=== PATIENT | female | born 1980 | race Caucasian/White ===

== ENCOUNTER → 2020-05-19 | Outpatient (CLI) | payer OTHER | END | disposition home or self-care (01) | LOC: LABWHC1 12:28 | PROVIDERS: ATTEND Obstetrics & Gynecology | DX: N83.201 Unspecified ovarian cyst, right side (principal) | CPT/HCPCS: 36415 ==

== ENCOUNTER → 2020-06-04 | Outpatient (CLI) | payer OTHER ==
[2020-06-04 17:01] LABS: Basophils % (A) 1 %; Eosinophils # (A) 0.2 k/uL (0-0.7); Eosinophils % (A) 3 %; HCT 39.7 % (34.0-46.0); HGB 12.4 gm/dL (11.4-16.0); Lymphocytes # (A) 2.9 k/uL (1.0-4.8); Lymphocytes % (A) 34 %; MCH 26.6 pg (25.0-35.0); MCHC 31.2 g/dL (31.0-37.0); MCV 85.2 fL (80.0-100.0); Mean Platelet Volume 6.8; Monocytes # (A) 0.5 k/uL (0-1.0); Monocytes % (A) 6 %; Neutrophils # (A) 4.7 k/uL (1.3-7.7); Neutrophils % (A) 55 %; Platelet Count 393 k/uL (150-450); RBC 4.66 m/uL (3.80-5.40); RDW 14.2 % (11.5-15.5); WBC 8.6 k/uL (3.8-10.6)
[2020-06-04 17:12] LABS: African American GFR (CKD) >90 (>60 ml/min/1.73 sqM); Anion Gap 8 mmol/L; Blood Urea Nitrogen 11 mg/dL (7-17); Carbon Dioxide 26 mmol/L (22-30); Chloride 104 mmol/L (98-107); Glucose 97 mg/dL (74-99); Non-African American GFR(CKD) >90 (>60 ml/min/1.73 sqM); Sodium 138 mmol/L (137-145)
== END | disposition home or self-care (01) ==
LOC: LABWHC1 16:19
PROVIDERS: ATTEND Obstetrics & Gynecology
DX: Z01.818 Encounter for other preprocedural examination (principal); N83.299 Other ovarian cyst, unspecified side
CPT/HCPCS: 80051; 82565; 82947; 84520; 85025; 87086

== ENCOUNTER 2020-06-14 05:50 | Inpatient (IN) | payer OTHER ==
[2020-06-09 16:09] VITALS: BMI 28.3
[2020-06-14] MEDS ORDERED: MIDAZOLAM 2 MG/2 ML VIAL IV PRN (05:58)
[2020-06-14] MEDS ORDERED: ONDANSETRON 4 MG/2 ML VIAL IVP ONE (05:58)
[2020-06-14] MEDS ORDERED: DEXAMETHASONE SOD PHOSPHATE 4 MG/ML 1 ML VIAL IV ONE (05:58)
[2020-06-14] MEDS ORDERED: fentaNYL (PF) 50 MCG/ML 2 ML AMP IVP PRN (05:58)
[2020-06-14] MEDS ORDERED: LIDOCAINE 1% (10MG/ML) FOR IV START INTRADERMA PRN (05:58)
[2020-06-14] MEDS ORDERED: LACTATED RINGERS 1,000 ML IV ONE ×2 (06:23→08:01)
[2020-06-14] MEDS ORDERED: SCOPOLAMINE 1.5MG/72HR PATCH TRANSDERM ONE (06:24)
[2020-06-14] MEDS ORDERED: fentaNYL (PF) 50 MCG/ML 2 ML AMP IV ONE ×2 (06:56→07:08)
[2020-06-14] MEDS ORDERED: MIDAZOLAM 2 MG/2 ML VIAL IV ONE (06:56)
[2020-06-14] MEDS ORDERED: GLYCOPYRROLATE 0.2 MG/ML 2 ML VIAL ONE (07:18)
[2020-06-14] MEDS ORDERED: SUCCINYLCHOLINE CHLORIDE 100 MG/5 ML SYR IV ONE (07:18)
[2020-06-14] MEDS ORDERED: ROCURONIUM 10 MG/ML (10 ML VIAL) IV ONE (07:18)
[2020-06-14] MEDS ORDERED: PHENYLEPHRINE-0.9% NACL SYG 1 MG/10 ML SYRINGE ONE (07:18)
[2020-06-14] MEDS ORDERED: fentaNYL (PF) 50 MCG/ML 2 ML AMP ONE (07:18)
[2020-06-14] MEDS ORDERED: PROPOFOL 10 MG/ML 20 ML VIAL IV ONE (07:18)
[2020-06-14] MEDS ORDERED: NEOSTIGMINE 1 MG/ML 10 ML VIAL ONE (07:18)
[2020-06-14] MEDS ORDERED: MIDAZOLAM 2 MG/2 ML VIAL ONE (07:18)
[2020-06-14] MEDS ORDERED: LIDOCAINE 1% INJ 10MG/ML (20 ML MDV) ONE (07:18)
[2020-06-14] MEDS ORDERED: CELLULOSE,OXIDIZED 1 EACH EACH MISCELLANE ONE (07:59)
[2020-06-14] MEDS ORDERED: ONDANSETRON 4 MG/2 ML VIAL IVP PRN (08:42)
[2020-06-14] MEDS ORDERED: IBUPROFEN 600 MG TAB PO PRN (08:42)
[2020-06-14] MEDS ORDERED: METOCLOPRAMIDE 5 MG/ML 2 ML VIAL IVP PRN (08:42)
[2020-06-14] MEDS ORDERED: SIMETHICONE 80 MG CHEWABLE PO PRN (08:42)
--- NOTE | 2020-06-14 08:42 | P.OP ---
Date of Procedure: 06/14/20 Preoperative Diagnosis: Complex 11 cm right ovarian mass Postoperative Diagnosis: Same, normal-appearing left tube and ovary, normal-appearing uterus Procedure(s) Performed: Exploratory laparotomy, pelvic washings, right salpingo-oophorectomy. Anesthesia: GETA Surgeon: Eva Nieves Plastic Surgery Technician #1: Annabel Christine Estimated Blood Loss (ml): 25 IV fluids (ml): 900 Urine output (ml): 20 Pathology: none sent (Pelvic washings, right tube and ovary) Condition: stable Disposition: PACU Description of Procedure: Patient is brought to the operating suite where a general anesthetic is administered after spinal with Duramorph was placed preoperatively. The abdomen is prepped and draped in the usual sterile fashion, patient in the dorsal supine position. Freire catheter placed. Antibiotics given. The appropriate timeout is performed to assure the proper patient and procedural identification. Urine hCG is negative. A low transverse skin incision is made in this is carried down through the subcutaneous tissue which is approximately 2 cm deep. Fascia is isolated, scored, extended bilaterally with curved Constantino scissors. Her to medium is next identified and incised, there is no bowel or bladder involvement. Pelvic washings are taken and sent to pathology under separate cover. The ring retractor is then placed and the bowel was gently packed away from the surgical field. The right ovarian cyst is noted and is carefully dissected utilizing Metzenbaum scissors and DeBakey forceps. The vascular pedicle is identified, doubly clamped cut and suture ligated. The tube is identified, clamped cut and suture ligated. The mass is carefully brought up into the surgical field unruptured. There are filmy adhesions posterior to the uterus and involving the sigmoid colon. The mass is sent to pathology for evaluation, again unruptured. Careful inspection is then performed of the posterior cul-de-sac, sigmoid colon, and posterior inferior uterine serosa. No obvious bleeders are noted. 5 mL of Surgicel are placed deep in the posterior cul-de-sac and a piece of Interceed is used across the inferior aspect of the uterus where it would interface with the sigmoid colon to prevent adhesions. Th e left tube and ovary are inspected and noted to be absolutely normal. The appendix is negative to inspection as well. There are no implants of endometriosis noted. Pelvis is inspected thoroughly, clean and dry. Peritoneum is allowed to close by secondary intention. The fascia is closed in a running manner of 0 Vicryl with over ligation in the midline. Subcutaneous tissue is irrigated, clean and dry. It is reapproximated with 3-0 Vicryl in a running fashion. 4-0 undyed Monocryl is used for final skin closure in a subcuticular manner. Steri-Strips and Mastisol are applied to the wound along with a dressing. Patient is brought back to recovery room in excellent condition with stable vital signs including a pulse of 60, 100% O2 saturation, blood pressure 90/50. Freire is noted to be draining clear urine. All sponge needle and enhancement counts are correct at the end of this procedure.
[2020-06-14] MEDS: HYDROmorphone 0.5 MG/0.5 ML SYRINGE IVP PRN ×2 (08:57→09:10)
[2020-06-14] MEDS ORDERED: MORPHINE SULFATE 2 MG/ML SYRINGE IVP PRN (12:01)
[2020-06-14] MEDS ORDERED: NALOXONE 0.4 MG/ML 1 ML VIAL IV PRN (12:01)
--- NOTE | 2020-06-14 12:06 | P.ANPRN ---
Procedure Note - Anesthesia - Epidural/Spinal Spinal Date of Procedure: 06/14/20 Procedure Start Time: 06:55 Procedure Stop Time: 07:10 Location of Patient: PreOp Indication: Acute Post-Operative Pain Sedation Type: Sedate with meaningful contact maintained Preparation: Sterile Prep Position: Sitting Needle Guage: 25 (Duramorph 300mcg, fentanyl 25mcg) Blood Aspirated: No Pain Paresthesia on Injection Noted: No Events: Uneventful and Well Tolerated
[2020-06-14] MEDS: KETOROLAC 15 MG/ML 1 ML VIAL IVP PRN ×2 (14:20→21:10)
[2020-06-15] MEDS: KETOROLAC 15 MG/ML 1 ML VIAL IVP PRN (04:12)
[2020-06-15] MEDS: LACTATED RINGERS 1,000 ML IV SCH ×2 (05:09→07:12)
--- NOTE | 2020-06-15 06:34 | P.PN ---
Progress Note - Text Progress Note Date: 06/15/20 Postoperative day 1 status post exp lap /ovarian cystectomy under general anes thesia and intrathecal Duramorph for postoperative analgesia.The patient is doing well, there is mild generalized skin itching. There are no other anesthesia related complications. The patient denies any paresthesia or weakness in the lower extremities. Further management as per the patient primary team.
--- NOTE | 2020-06-15 07:43 | P.DS ---
Providers Date of admission: 06/14/20 05:50 Expected date of discharge: 06/15/20 Attending physician: Eva Nieves Primary care physician: Kelli [facility] Course: This is a 39-year-old who presented with an 11 cm complex right adnexal mass. Preliminary testing suggested benign nature. Patient was scheduled for exploratory surgery and removal of the mass. Please see my dictated history and physical for details. Yesterday she underwent an exploratory laparotomy, pelvic washings, and right salpingo-oophorectomy. The mass was 11-12 cm, complex in nature, and likely consistent with endometrioma. The left ovary and tube remained in situ, appeared normal to inspection. No additional foci of endometriosis were noted. Appendix appeared normal. Please see my dictated operative note for details. This morning the patient is doing well. She is voiding, ambulating, passing flatus without difficulty. Pain is well managed. Incision is clean and dry, intact with Steri-Strips applied. Patient's diet has been advanced, and she is judged to be in very good condition for discharge home. She will follow-up with me in the office in 2 weeks. I have reminded her no intercourse, tampons or douching. She will use [id number] Advil or Aleve, or Motrin as needed for pain. I've asked her to call with any redness drainage or bleeding of the incision, with any pain not alleviated by [id number] products, with any issues with defecation or urination, or indeed with any concerns. No heavy lifting, no driving for 2 weeks. Pathology is pending at the time of this dictation. Patient Condition at Discharge: Good Plan - Discharge Summary Discharge Rx Participant: No New Discharge Prescriptions: No Action Multivitamins, Thera [Multivitamin (formulary)] 1 tab PO DAILY buPROPion HCL [Wellbutrin XL] 150 mg PO HS Discharge Medication List Multivitamins, Thera [Multivitamin (formulary)] 1 tab PO DAILY 06/09/20 [History] buPROPion HCL [Wellbutrin XL] 150 mg PO HS 06/09/20 [History] Follow up Appointment(s)/Referral(s): Eva Nieves MD [STAFF PHYSICIAN] - 2 Weeks Patient Instructions/Handouts: *Surgery [facility] - Scopalamine Patch Instructions Discharge Disposition: HOME SELF-CARE
[2020-06-15 08:59] VITALS: BP 98/55; PULSE 70; TEMP 98.1
[2020-06-15 14:19] VITALS: RESP 17
== END 2020-06-15 15:30 | disposition home or self-care (01) | DRG 742 ==
LOC: 2ORMAIN 05:50 → 4FBP 08:37
PROVIDERS: ADMIT Obstetrics & Gynecology; ATTEND Obstetrics & Gynecology
PROC: 0UT50ZZ Resection of Right Fallopian Tube, Open Approach (ICD-10-PCS; principal; 2020-06-14 07:30)
PROC: 0UT00ZZ Resection of Right Ovary, Open Approach (ICD-10-PCS; principal; 2020-06-14 07:30)
PROC: 3E1M38X Irrigation of Peritoneal Cavity using Irrigating Substance, Percutaneous Approach, Diagnostic (ICD-10-PCS; principal; 2020-06-14 07:30)
DX: N80.1 Endometriosis of ovary (principal); N39.0 Urinary tract infection, site not specified; N94.6 Dysmenorrhea, unspecified; R10.2 Pelvic and perineal pain; Z90.89 Acquired absence of other organs; Z88.5 Allergy status to narcotic agent; Z83.3 Family history of diabetes mellitus
CPT/HCPCS: 36415; 81025; 86850; 86900; 86901; 88108; 88305; 88307

== ENCOUNTER 2022-10-23 08:06 | Day surgery (SDC) | payer OTHER ==
[2022-10-19 16:21] VITALS: BMI 28.3
[~2022-10-23 08:06] MED LIST: DEXAMETHASONE SOD PHOSPHATE 4 MG/ML 1 ML VIAL IV ONE; LACTATED RINGERS 1,000 ML IV SCH; LIDOCAINE 1% (10MG/ML) FOR IV START INTRADERMA PRN; ONDANSETRON 4 MG/2 ML VIAL IVP ONE; Pre Op ABX Message 1 EACH MISC MISCELLANE ONE; fentaNYL (PF) 50 MCG/ML 2 ML AMP IV PRN
[2022-10-23] MEDS ORDERED: SCOPOLAMINE 1 MG/72 HR PATCH TRANSDERM ONE (08:40)
[2022-10-23] MEDS ORDERED: PROPOFOL 10 MG/ML 20 ML VIAL IV ONE (08:55)
[2022-10-23] MEDS ORDERED: MIDAZOLAM 2 MG/2 ML VIAL ONE (08:55)
[2022-10-23] MEDS ORDERED: KETOROLAC 15 MG/ML 1 ML VIAL ONE (08:55)
[2022-10-23] MEDS ORDERED: fentaNYL (PF) 50 MCG/ML 2 ML AMP ONE (08:55)
[2022-10-23] MEDS ORDERED: LIDOCAINE 2% INJ 20 MG/ML (2 ML VIAL) ONE (08:55)
--- NOTE | 2022-10-23 09:32 | P.OP ---
Date of Procedure: 10/23/22 Preoperative Diagnosis: Endometrial polyps noted sonographically Postoperative Diagnosis: Multiple endometrial polyps Procedure(s) Performed: Stress daily, polypectomy, D&C Anesthesia: JASONA Surgeon: Eva Nieves Estimated Blood Loss (ml): 20 IV fluids (ml): 500 Urine output (ml): 200 Pathology: other (Endometrial curettings and polyps) Condition: stable Disposition: PACU Operative Findings: Multiple fleshy endometrial polyps, negative adnexa per bimanual exam Description of Procedure: Patient is brought to the operating suite where a general anesthetic is administered without difficulty. She's placed in the dorsal lithotomy position. The appropriate timeout is performed to assure proper patient and procedural identification, urine hCG is negative. Examination under anesthesia reveals a small anteverted uterus, negative adnexa bilaterally. Weighted speculum was placed into the vagina and the bladder is drained with a red Chery catheter for approximately 200 mL of clear yellow urine. Anterior lip of the cervix is grasped with a double-tooth tenaculum. Uterus sounds to a depth of 9 cm in the anteverted position. The cervix was gently and systematically dilated with Hanks dilators with very little resistance. Hysteroscope was placed and fluid is infused. In inspecting the endometrial cavity there are multiple fleshy polyps noted. Ostia appear normal. Hysteroscope was removed. A medium sharp curette is used and the uterus is curettaged in all 4 quadrants. Polyp forcep was then introduced and additional polypoid tissue is procured. This was all sent to pathology for evaluation. When completed, the hysteroscope was once again placed and the cavity appears negative. All sponge needle and enhancement counts are correct. Total estimated blood loss 20 mL's. Patient is brought back to recovery room in very good condition with stable vital signs including blood pressure 98/58, pulse 68. Toradol is given prior to leaving the operative suite. Written instructions for postoperative care are provided. I will see the patient in the office in 2 weeks.
[2022-10-23 09:35] VITALS: TEMP 97.5
[2022-10-23] MEDS ORDERED: ACETAMINOPHEN TAB 500 MG TAB ONE (10:29)
[2022-10-23] MEDS ORDERED: ACETAMINOPHEN TAB 500 MG TAB PO ONE (10:31)
[2022-10-23] MEDS ORDERED: LACTATED RINGERS 1,000 ML IV ONE (10:32)
[2022-10-23 11:48] VITALS: BP 109/63; PULSE 68; RESP 16
== END 2022-10-23 11:55 | disposition home or self-care (01) ==
LOC: OR 08:06
PROVIDERS: ATTEND Obstetrics & Gynecology
DX: N84.0 Polyp of corpus uteri (principal); N83.209 Unspecified ovarian cyst, unspecified side; Z88.5 Allergy status to narcotic agent; Z88.2 Allergy status to sulfonamides; Z90.89 Acquired absence of other organs; Z98.890 Other specified postprocedural states; Z83.3 Family history of diabetes mellitus; Z79.899 Other long term (current) drug therapy
CPT/HCPCS: 81025; 88305; 58558; J2250; J1100; J2405; J3010; J1885; J2704; J2001